=== PATIENT | male | born 1955 | race Caucasian/White ===

== ENCOUNTER 2016-11-24 19:31 | Emergency (ER) | payer MEDICARE ==
[2016-11-24 20:14] LABS: ALBUMIN 3.4 g/dL (3.4-4.8); BASOPHIL 0.1 % (0-2); BILIRUBIN - TOTAL 0.6 mg/dL (0.1-1.0); CREATININE 1.1 mg/dL (0.7-1.2); EOSINOPHIL 0 % (0-5); GLOBULIN (CALCULATION) 4.4 g/dL (2.2-4.2); HCT 48.6 % (42.0-52.0); HGB 16.3 g/dl (13.2-18.0); LYMPHOCYTE 11.2 % (15-48); MAGNESIUM 1.97 mg/dL (1.40-2.10); MCH 33.8 pg (25.0-31.0); MCHC 33.5 g/dL (32.0-36.0); MCV 100.8 fL (78.0-100.0); MONOCYTE 6.7 % (0-12); MPV 11.7 fL (6.0-9.5); PLT 255 K/uL (150-400); POTASSIUM 4.1 mmol/L (3.5-5.1); RBC 4.82 M/uL (4.70-6.00); RDW 14.9 % (11.5-14.0); TOTAL PROTEIN 7.8 g/dL (6.4-8.3); WBC 14.9 K/uL (4.0-10.5)
[2016-11-24 20:19] LABS: INR 1.12 (0.9-1.2); PTT 29.1 SECONDS (23.2-31.4)
[2016-11-24 20:20] LABS: D-DIMER 1.88 ug/mLFEU (0.00-0.41)
== END 2016-11-25 00:42 | disposition other institution (70) ==
LOC: FER 19:31
PROVIDERS: Internal Medicine
DX: I26.99 Other pulmonary embolism without acute cor pulmonale (principal); I48.91 Unspecified atrial fibrillation; R91.8 Other nonspecific abnormal finding of lung field; J44.9 Chronic obstructive pulmonary disease, unspecified; F17.200 Nicotine dependence, unspecified, uncomplicated; Z85.46 Personal history of malignant neoplasm of prostate
CPT/HCPCS: 36415; 36600; 71010; 71275; 80053; 82803; 83690; 83735; 84484; 85025; 85379; 85610; 85730; 93005; J1644; J1885; Q9967

== ENCOUNTER → 2017-01-23 | Day surgery (SDC) | payer MEDICARE ==
[~2017-01-23] VITALS: Ht 182.9 cm; Wt 76.0 kg
[2017-01-23 08:01] LABS: INR 0.98 (0.9-1.2); PROTHROMBIN TIME 12.6 SECONDS (11.7-14.0); PTT 21.7 SECONDS (23.2-31.4)
--- NOTE | 2017-01-23 11:36 | NUR ---
1015 PICC LINE NURSE PT IN RECOVERY S/P PORT PLACEMENT PER . ORDER RECEIVED FOR REMOVAL OF PICC LINE. PT ON STRETCHER, PROCEDURE EXPLAINED. PT TOLD TO TAKE A DEEP BREATH AND BARE DOWN PICC LINE WAS REMOVED IN ONE SINGLE MANUEVER. PICC LINE REMOVED INTACT, PRESSURE HELD FOR 5 MINUTES AND SMALL GAUZE DRG APPLIED. SITE IS CLEAN AND DRY. PT TOLERATED IT WELL.
== END | disposition home or self-care (01) ==
LOC: FAS 07:34
PROVIDERS: Anesthesiology
DX: I87.2 Venous insufficiency (chronic) (peripheral) (principal); I48.91 Unspecified atrial fibrillation; I10 Essential (primary) hypertension; J44.9 Chronic obstructive pulmonary disease, unspecified; F17.210 Nicotine dependence, cigarettes, uncomplicated; M19.90 Unspecified osteoarthritis, unspecified site; F41.9 Anxiety disorder, unspecified; M06.9 Rheumatoid arthritis, unspecified; K21.9 Gastro-esophageal reflux disease without esophagitis; Z79.899 Other long term (current) drug therapy; Z88.8 Allergy status to other drugs, medicaments and biological substances; Z98.890 Other specified postprocedural states
CPT/HCPCS: 36415; 71010; 76000; 85610; 85730; 93005; C1788; J1644; J2704